=== PATIENT | female | born 1945 | race Two or more races ===

== ENCOUNTER 2016-09-11 09:48 | Outpatient (CLI) | payer MEDICARE, MEDICAID | END 2016-09-11 09:49 | disposition home or self-care (01) | DX: R41.81 Age-related cognitive decline (principal); G31.84 Mild cognitive impairment of uncertain or unknown etiology; M81.0 Age-related osteoporosis without current pathological fracture ==

== ENCOUNTER 2016-09-16 09:45 | Outpatient (CLI) | payer MEDICARE, MEDICAID | END 2016-09-16 09:46 | disposition home or self-care (01) | DX: R82.99 Other abnormal findings in urine (principal) ==

== ENCOUNTER 2016-12-23 08:00 | Outpatient (CLI) | payer MEDICARE, MEDICAID ==
[2016-12-24 13:18] LABS: BILIRUBIN,URINE NEGATIVE (NEGATIVE)
[2016-12-24 13:29] LABS: UA CHARGE (STRIP ONLY) YES; UR CULTURE IF IND NOT INDICATED
== END 2016-12-23 08:01 | disposition home or self-care (01) ==
LOC: LAB.R 08:00
PROVIDERS: ATTEND Physician Assistant Medical
DX: R35.0 Frequency of micturition (principal)
CPT/HCPCS: 81001; 81003; 87086

== ENCOUNTER 2017-06-27 10:30 | Outpatient (CLI) | payer MEDICARE, MEDICAID ==
[2017-06-27 15:21] LABS: BILIRUBIN,URINE NEGATIVE (NEGATIVE); PH,URINE 6.5 PH (5.0-7.5)
[2017-06-27 15:23] LABS: ALBUMIN/GLOBULIN RATIO 1.1 (1.0-2.2); BILIRUBIN,TOTAL 0.7 mg/dL (0.2-1.0); CALCIUM 9.5 mg/dL (8.5-10.3); CREATININE 0.9 mg/dL (0.4-1.0); POTASSIUM 4.1 mmol/L (3.5-5.0); TOTAL PROTEIN 7.7 g/dL (6.7-8.2)
[2017-06-27 15:41] LABS: BASOPHILS % (AUTO) 0.7 %; EOSINOPHILS # (AUTO) 0.1 10^3/uL (0.0-0.7); EOSINOPHILS % (AUTO) 2.8 %; HCT - HEMATOCRIT 40.2 % (37.0-47.0); HGB - HEMOGLOBIN 13.5 g/dL (12.0-16.0); LYMPHOCYTES # (AUTO) 1.4 10^3/uL (1.5-3.5); LYMPHOCYTES % (AUTO) 38.2 %; MEAN CORPUSCULAR HGB CONC 33.6 g/dL (32.0-36.0); MEAN CORPUSCULAR VOLUME 83.4 fL (81.0-99.0); MEAN PLATELET VOLUME 7.8 fL (7.9-10.8); MONOCYTES # (AUTO) 0.2 10^3/uL (0.0-1.0); MONOCYTES % (AUTO) 5.5 %; NEUTROPHILS # (AUTO) 1.9 10^3/uL (1.5-6.6); NEUTROPHILS % (AUTO) 52.8 %; RED BLOOD COUNT 4.83 10^6/uL (4.20-5.40); RED CELL DISTRIBUTION WIDTH 14.2 % (12.0-15.0); UNCORRECTED WHITE BLOOD COUNT 3.6 x10^3/uL; WHITE BLOOD COUNT 3.6 x10^3/uL (4.8-10.8)
[2017-06-27 16:00] LABS: UA CHARGE (STRIP ONLY) YES; UR CULTURE IF IND INDICATED
== END 2017-06-27 10:31 | disposition home or self-care (01) ==
LOC: LAB.R 10:30
PROVIDERS: ATTEND Physician Assistant Medical
DX: R55 Syncope and collapse (principal); R35.0 Frequency of micturition; R41.89 Other symptoms and signs involving cognitive functions and awareness
CPT/HCPCS: 80053; 81001; 81003; 85025; 87086

== ENCOUNTER 2018-01-29 08:00 | Outpatient (CLI) | payer MEDICARE, MEDICAID ==
[2018-01-29 17:59] LABS: BASOPHILS % (AUTO) 0.6 %; EOSINOPHILS # (AUTO) 0.1 10^3/uL (0.0-0.7); EOSINOPHILS % (AUTO) 2.7 %; HGB - HEMOGLOBIN 13.1 g/dL (12.0-16.0); LYMPHOCYTES # (AUTO) 1.4 10^3/uL (1.5-3.5); LYMPHOCYTES % (AUTO) 38.9 %; MEAN CORPUSCULAR HGB CONC 33.3 g/dL (32.0-36.0); MEAN CORPUSCULAR VOLUME 84.2 fL (81.0-99.0); MEAN PLATELET VOLUME 7.6 fL (7.9-10.8); MONOCYTES # (AUTO) 0.2 10^3/uL (0.0-1.0); MONOCYTES % (AUTO) 6.3 %; NEUTROPHILS # (AUTO) 1.9 10^3/uL (1.5-6.6); NEUTROPHILS % (AUTO) 51.5 %; PLT - PLATELET COUNT 220 10^3/uL (130-450); RED BLOOD COUNT 4.66 10^6/uL (4.20-5.40); RED CELL DISTRIBUTION WIDTH 15.3 % (12.0-15.0); WHITE BLOOD COUNT 3.7 x10^3/uL (4.8-10.8)
[2018-01-29 18:14] LABS: ALBUMIN 4.1 g/dL (3.2-5.5); ALBUMIN/GLOBULIN RATIO 1.1 (1.0-2.2); ALKALINE PHOSPHATASE 65 IU/L (42-121); ALT ALANINE AMINOTRANSFERASE 18 IU/L (10-60); AST ASPARTATE AMINOTRANSFERASE 23 IU/L (10-42); BILIRUBIN,TOTAL 0.7 mg/dL (0.2-1.0); BUN - BLOOD UREA NITROGEN 12 mg/dL (6-20); CALCIUM 9.2 mg/dL (8.5-10.3); CARBON DIOXIDE - CO2 26 mmol/L (21-32); CHLORIDE 103 mmol/L (101-111); CHOL/HDL RATIO 3.1 (<4.4); CHOLESTEROL 154 mg/dL; CREATININE 0.8 mg/dL (0.4-1.0); GFR - MDRD 71 (>89); GLUCOSE 79 mg/dL (70-100); HDL CHOLESTEROL 50 mg/dL; LDL CHOLESTEROL,CALCULATED 88 mg/dL; LDL/HDL RATIO 1.8 (<4.4); SODIUM 135 mmol/L (135-145); TOTAL PROTEIN 7.8 g/dL (6.7-8.2); VLDL CHOLESTEROL 16 mg/dL
[2018-01-29 18:24] LABS: THYROID STIMULATING HORMONE 1.82 uIU/mL (0.34-5.60)
== END 2018-01-29 08:01 | disposition home or self-care (01) ==
LOC: LAB.R 08:00
PROVIDERS: ATTEND Physician Assistant Medical
DX: R35.0 Frequency of micturition (principal); R41.89 Other symptoms and signs involving cognitive functions and awareness; M81.0 Age-related osteoporosis without current pathological fracture; Z79.899 Other long term (current) drug therapy
CPT/HCPCS: 80053; 80061; 82306; 82607; 83721; 84443; 85025; 87086; 87181

== ENCOUNTER 2018-03-26 13:20 | Outpatient (CLI) | payer MEDICARE, MEDICAID ==
[2018-03-26] MEDS ORDERED: GADOBUTROL 7.5 MMOL/7.5 ML VIAL ONE (14:07)
[2018-03-26] MEDS ORDERED: GADOBUTROL 7.5 MMOL/7.5 ML VIAL IVP ONE (14:38)
--- NOTE | 2018-03-27 17:03 | MRI Report ---
Procedure Date: 03/26/2018 Accession Number: [id number] / [id number] Procedure: MRI - Brain W/WO CPT Code: FULL RESULT: EXAM: MRI BRAIN WITHOUT AND WITH CONTRAST EXAM DATE: 03/26/2018 02:56 PM. CLINICAL HISTORY: Cognitive changes. COMPARISON: MRI of the brain without contrast 02/22/2015. TECHNIQUE: Multiplanar, multisequence T1-weighted and fluid-sensitive MR sequences of the brain were performed. Sequences optimized for routine evaluation. Other: None. IV Contrast: 7.5 mL Gadavist. FINDINGS: The diffusion-weighted images are normal. There is no evidence of acute or subacute cerebral infarction. The T2* sequence is normal. There is no evidence of subacute or chronic hemorrhage. The FLAIR images demonstrate multiple punctate and confluent areas of T2 hyperintensity within the subcortical, deep, and periventricular white matter. This is consistent with a moderate degree of chronic small vessel ischemia. There is enlargement of the lateral ventricles and the third ventricle but not out of proportion to the enlargement of the cerebral sulci. This is consistent with a mild degree of generalized volume loss. There is a mild degree of mucosal thickening in the bilateral maxillary sinuses. The optic nerves demonstrate symmetric signal intensity and size. The bilateral parotid spaces exhibit normal signal intensity. The degree of hippocampal volume loss does not appear to be out of proportion to that of the generalized supratentorial volume loss. The hippocampi exhibit symmetric signal intensities. The cerebral vascular flow voids are patent. The postcontrast T1-weighted images are normal. IMPRESSION: 1. There is no evidence of acute or subacute cerebral infarction. 2. There is moderate degree of chronic small vessel ischemia and mild degree of generalized volume loss. 3. There is no evidence of brain mass. 4. The degree of hippocampal volume loss does not appear to be out of proportion to that of the generalized supratentorial volume loss.
== END 2018-03-26 13:21 | disposition home or self-care (01) ==
LOC: DI 13:20
PROVIDERS: ATTEND Physician Assistant Medical
DX: R41.89 Other symptoms and signs involving cognitive functions and awareness (principal); I67.82 Cerebral ischemia
CPT/HCPCS: 70553; A9585

== ENCOUNTER 2020-02-02 08:00 | Outpatient (CLI) | payer MEDICARE, MEDICAID ==
[2020-02-02 18:24] LABS: BILIRUBIN,URINE NEGATIVE (NEGATIVE); GLUCOSE, URINE (UA) NEGATIVE (NEGATIVE); KETONES,URINE (UA) NEGATIVE (NEGATIVE); LEUKOCYTE ESTERASE, URINE SMALL (NEGATIVE); NITRITE,URINE POSITIVE (NEGATIVE); OCCULT BLOOD,URINE NEGATIVE (NEGATIVE); PROTEIN,URINE NEGATIVE (NEGATIVE); UROBILINOGEN,URINE 1 (NORMAL) E.U./dL (NORMAL)
[2020-02-02 18:28] LABS: CLARITY,URINE CLEAR (CLEAR)
[2020-02-02 19:14] LABS: BACTERIA,URINE Many /HPF (None Seen); RBC,URINE 0-5 /HPF (0-5); SQUAMOUS EPITHELIAL CELL,UR MANY Squamous (<= Few)
== END 2020-02-02 23:59 | disposition home or self-care (01) ==
LOC: LAB.R 08:00
PROVIDERS: ATTEND Nurse Practitioner Family
DX: R35.0 Frequency of micturition (principal)
CPT/HCPCS: 81001; 81003; 87086

== ENCOUNTER 2020-03-30 08:00 | Outpatient (CLI) | payer MEDICARE, MEDICAID | END 2020-03-30 23:59 | disposition home or self-care (01) | LOC: LAB.R 08:00 | PROVIDERS: ATTEND Nurse Practitioner Family | DX: J06.9 Acute upper respiratory infection, unspecified (principal); Z20.828 Contact with and (suspected) exposure to other viral communicable diseases ==

== ENCOUNTER 2020-10-30 09:46 | Outpatient (CLI) | payer MEDICARE, MEDICAID ==
[2020-10-30 12:16] LABS: BASOPHILS % (AUTO) 0.6 %; EOSINOPHILS # (AUTO) 0.2 10^3/uL (0.0-0.7); EOSINOPHILS % (AUTO) 4.8 %; HCT - HEMATOCRIT 43.7 % (37.0-47.0); HGB - HEMOGLOBIN 13.7 g/dL (12.0-16.0); LYMPHOCYTES % (AUTO) 31.7 %; MEAN CORPUSCULAR HEMOGLOBIN 27.6 pg (27.0-31.0); MEAN CORPUSCULAR HGB CONC 31.4 g/dL (32.0-36.0); MEAN CORPUSCULAR VOLUME 88.1 fL (81.0-99.0); MONOCYTES # (AUTO) 0.2 10^3/uL (0.0-1.0); MONOCYTES % (AUTO) 5.4 %; NEUTROPHILS # (AUTO) 1.8 10^3/uL (1.5-6.6); NEUTROPHILS % (AUTO) 57.5 %; PLT - PLATELET COUNT 200 10^3/uL (130-450); RED BLOOD COUNT 4.96 10^6/uL (4.20-5.40); RED CELL DISTRIBUTION WIDTH 14.2 % (12.0-15.0); WHITE BLOOD COUNT 3.2 x10^3/uL (4.8-10.8)
[2020-10-30 12:43] LABS: ALBUMIN 4.3 g/dL (3.2-5.5); ALBUMIN/GLOBULIN RATIO 1.1 (1.0-2.2); ALKALINE PHOSPHATASE 60 IU/L (42-121); ALT ALANINE AMINOTRANSFERASE 19 IU/L (10-60); AST ASPARTATE AMINOTRANSFERASE 23 IU/L (10-42); BILIRUBIN,TOTAL 0.9 mg/dL (0.2-1.0); BUN - BLOOD UREA NITROGEN 12 mg/dL (6-20); CALCIUM 9.7 mg/dL (8.5-10.3); CARBON DIOXIDE - CO2 28 mmol/L (21-32); CHLORIDE 109 mmol/L (101-111); CHOL/HDL RATIO 3.9 (<4.4); CHOLESTEROL 180 mg/dL; CREATININE 0.9 mg/dL (0.4-1.0); GFR - MDRD 61 (>89); GLUCOSE 93 mg/dL (70-100); HDL CHOLESTEROL 46 mg/dL; LDL CHOLESTEROL,CALCULATED 117 mg/dL; LDL/HDL RATIO 2.5 (<4.4); POTASSIUM 4.3 mmol/L (3.5-5.0); SODIUM 143 mmol/L (135-145); TOTAL PROTEIN 8.2 g/dL (6.7-8.2); TRIGLYCERIDES 84 mg/dL; VLDL CHOLESTEROL 17 mg/dL
[2020-10-30 12:44] LABS: CRP - C-REACTIVE PROTEIN < 1.0 mg/dL (0-1.0)
[2020-10-30 12:45] LABS: THYROID STIMULATING HORMONE 1.87 uIU/mL (0.34-5.60)
[2020-10-30 13:34] LABS: FOLATE > 49.60 ng/mL (5.90 - >24.8)
== END 2020-10-30 09:47 | disposition home or self-care (01) ==
LOC: LAB.N 09:46
PROVIDERS: ATTEND Family Medicine
DX: R53.83 Other fatigue (principal); R60.0 Localized edema; R07.89 Other chest pain; R32 Unspecified urinary incontinence
CPT/HCPCS: 36415; 80053; 80061; 81001; 81003; 82607; 82746; 83721; 84443; 85025; 85651; 86140; 87086

== ENCOUNTER 2020-11-06 08:00 | Outpatient (CLI) | payer MEDICARE, MEDICAID ==
[2020-11-06 18:53] LABS: BILIRUBIN,URINE NEGATIVE (NEGATIVE); GLUCOSE, URINE (UA) NEGATIVE (NEGATIVE); KETONES,URINE (UA) NEGATIVE (NEGATIVE); LEUKOCYTE ESTERASE, URINE SMALL (NEGATIVE); NITRITE,URINE POSITIVE (NEGATIVE); OCCULT BLOOD,URINE NEGATIVE (NEGATIVE); PH,URINE 6.5 PH (5.0-7.5); PROTEIN,URINE NEGATIVE (NEGATIVE); UROBILINOGEN,URINE 0.2 (NORMAL) E.U./dL (NORMAL)
[2020-11-06 19:00] LABS: BACTERIA,URINE Many /HPF (None Seen); CLARITY,URINE SL. CLOUDY (CLEAR); RBC,URINE 0-5 /HPF (0-5); SQUAMOUS EPITHELIAL CELL,UR FEW Squamous (<= Few); WBC,URINE 0-3 /HPF (0-5)
== END 2020-11-06 23:59 | disposition home or self-care (01) ==
LOC: LAB.WCP 08:00
PROVIDERS: ATTEND Family Medicine
DX: R32 Unspecified urinary incontinence (principal)
CPT/HCPCS: 81001; 87086; 87181

== ENCOUNTER 2020-11-07 09:36 | Outpatient (CLI) | payer MEDICARE, MEDICAID ==
--- NOTE | 2020-11-07 10:37 | XRAY Report ---
PROCEDURE: Chest 2 View X-Ray INDICATIONS: FATIGUE TECHNIQUE: 2 view(s) of the chest. COMPARISON: 03/14/2014. FINDINGS: Surgical changes and devices: None. Lungs and pleura: No pleural effusions or pneumothorax. Lungs are clear. Mediastinum: Mediastinal contours are normal. Heart size is normal. Bones and chest wall: No suspicious bony abnormalities. Soft tissues appear unremarkable. IMPRESSION: Chest without acute cardiopulmonary abnormalities. No focal airspace disease. Reviewed by: Tarun Baldwin MD on 11/07/2020 10:36 AM PDT Approved by: Tarun Baldwin MD on 11/07/2020 10:36 AM PDT Station ID: [id number]
== END 2020-11-07 23:59 | disposition home or self-care (01) ==
LOC: DI.WCP 09:36
PROVIDERS: ATTEND Family Medicine
DX: R53.83 Other fatigue (principal); R60.0 Localized edema

== ENCOUNTER 2021-04-24 00:26 | Emergency (ER) | payer MEDICARE, MEDICAID ==
--- NOTE | 2021-04-24 02:20 | ED Physician Documentation ---
PD HPI SKIN - Stated complaint Stated Complaint: BREST SWOLLEN/PX - Chief complaint Chief Complaint: General - History obtained from History obtained from: Patient - History of Present Illness Timing - onset: How many weeks ago (2) Timing - details: Gradual onset Pain level now: 3 Location: Chest Quality / character: Itchy, Painful, Burning, Discolored Associated symptoms: No: Fever Similar symptoms before: Has not had sx before - Additional information Additional information: c/o 2 weeks of rash under bilateral breasts, became painful and associated with malodor x 2-3 days Review of Systems Constitutional: denies: Fever Skin: reports: Rash PD PAST MEDICAL HISTORY - Past Medical History Past Medical History: Yes Cardiovascular: Other Respiratory: Tuberculosis Neuro: None Endocrine/Autoimmune: None GI: None [employer]: None : Chronic bladder infection, Frequency HEENT: None Psych: None Musculoskeletal: Osteoarthritis, Osteoporosis Derm: Other - Past Surgical History Past Surgical History: Yes General: Other /[employer]: Dilation and currettage - Present Medications Home Medications: Ambulatory Orders Medication Instructions Recorded Confirmed Doxycycline Hyclate 100 mg PO BID #19 04/24/21 Fluconazole [Diflucan] 1 tablet PO ONCE 1 Days #1 tablet 04/24/21 Ketoconazole 2% Cream [Nizoral 2% 1 applic TOP DAILY #15 gm 04/24/21 Cream] - Allergies Allergies/Adverse Reactions: Allergies Allergy/AdvReac Type Severity Reaction Status Date / Time No Known Drug Allergies Allergy Verified 04/24/21 00:40 - Social History Does the pt smoke?: No Smoking Status: Never smoker Does the pt drink ETOH?: Yes Does the pt have substance abuse?: No - Immunizations Immunizations are current?: Yes - POLST Patient has POLST: No PD ED PE NORMAL - Vitals Vital signs reviewed: Yes - General General: Alert and oriented X 3, No acute distress PD ED PE EXPANDED - Cardiac Cardiac: Chest wall TTP - Derm Derm: Rash (erythematous exanthem, raised vesicles with confluence and satellite lesions, intertriginous area of bilateral breasts and adjacent chest wall. There is an associated creamy, malodorous discharge but no evidence of drainage from specific site nor any palpable abscess/fluctuance ) Results - Vitals Vitals: Oxygen O2 Source Room air PD MEDICAL DECISION MAKING - ED course Complexity details: considered differential, d/w patient ED course: HPI and exam are consistent with intertrigo/cutaneous candidiasis (on underside of bilateral breasts and the area of chest wall underneath the breasts), with a malodorous discharge that is concerning for superimposed bacterial component (such as cellulitis). Will treat with both diflucan and antibiotic, d/w patient expected course (improvement within 2-3 days), and return precautions Departure - Departure Disposition: 01 Home, Self Care Clinical Impression: Intertrigo, Cellulitis of chest wall Condition: Good Instructions: ED Candidiasis Cutaneous, ED Infec Skin Cellulitis Prescriptions: Fluconazole [Diflucan] 1 tablet PO ONCE 1 Days #1 tablet Doxycycline Hyclate 100 mg PO BID #19 Ketoconazole 2% Cream [Nizoral 2% Cream] 1 applic TOP DAILY #15 gm Comments: Follow up with your primary care provider in 3-4 days for recheck of the infection Discharge Date/Time: 04/24/21 02:39
[2021-04-24] MEDS ORDERED: FLUCONAZOLE 100 MG TABLET PO STA (02:29)
[2021-04-24] MEDS ORDERED: DOXYCYCLINE 100 MG TABLET PO STA (02:29)
[2021-04-24 02:40] VITALS: BP 132/75
== END 2021-04-24 02:39 | disposition home or self-care (01) ==
LOC: ED 00:26
DX: L30.4 Erythema intertrigo (principal); L03.313 Cellulitis of chest wall
CPT/HCPCS: 99283; A9270

== ENCOUNTER 2021-07-20 09:53 | Outpatient (CLI) | payer MEDICARE, MEDICAID ==
[2021-07-20 12:19] LABS: BILIRUBIN,URINE NEGATIVE (NEGATIVE); GLUCOSE, URINE (UA) NEGATIVE (NEGATIVE); KETONES,URINE (UA) NEGATIVE (NEGATIVE); LEUKOCYTE ESTERASE, URINE NEGATIVE (NEGATIVE); NITRITE,URINE NEGATIVE (NEGATIVE); OCCULT BLOOD,URINE NEGATIVE (NEGATIVE); PH,URINE 8.5 PH (5.0-7.5); PROTEIN,URINE NEGATIVE (NEGATIVE); UROBILINOGEN,URINE 0.2 (NORMAL) E.U./dL (NORMAL)
[2021-07-20 13:10] LABS: BACTERIA,URINE None Seen /HPF (None Seen); CLARITY,URINE HAZY (CLEAR); EPITHELIAL CELLS,UR None Seen /HPF (<= Few); RBC,URINE None Seen /HPF (0-5); SQUAMOUS EPITHELIAL CELL,UR RARE Squamous (<= Few); WBC CLUMPS,URINE NONE SEEN; WBC,URINE 0-3 /HPF (0-5)
[2021-07-20 13:11] LABS: CRYSTALS,URINE 6-10 Triple Phos /LPF
== END 2021-07-20 23:59 | disposition home or self-care (01) ==
LOC: LAB.WCP 09:53
PROVIDERS: ATTEND Family Medicine
DX: R35.0 Frequency of micturition (principal)
CPT/HCPCS: 81001; 87086

== ENCOUNTER 2021-09-04 08:00 | Outpatient (CLI) | payer MEDICARE, MEDICAID ==
[2021-09-04 18:42] LABS: BILIRUBIN,URINE NEGATIVE (NEGATIVE); GLUCOSE, URINE (UA) NEGATIVE (NEGATIVE); KETONES,URINE (UA) NEGATIVE (NEGATIVE); LEUKOCYTE ESTERASE, URINE NEGATIVE (NEGATIVE); NITRITE,URINE POSITIVE (NEGATIVE); OCCULT BLOOD,URINE NEGATIVE (NEGATIVE); PH,URINE >=9.0 PH (5.0-7.5); PROTEIN,URINE NEGATIVE (NEGATIVE); UROBILINOGEN,URINE 1 (NORMAL) E.U./dL (NORMAL)
[2021-09-04 18:44] LABS: CLARITY,URINE HAZY (CLEAR)
[2021-09-04 20:04] LABS: AMORPHOUS SEDIMENT,UR Few /LPF; BACTERIA,URINE Many /HPF (None Seen); CRYSTALS,URINE 11-25 Triple Phos /LPF; RBC,URINE None Seen /HPF (0-5); SQUAMOUS EPITHELIAL CELL,UR RARE Squamous (<= Few); WBC,URINE 0-3 /HPF (0-5)
== END 2021-09-04 23:59 | disposition home or self-care (01) ==
LOC: LAB.WCP 08:00
PROVIDERS: ATTEND Family Medicine
DX: R32 Unspecified urinary incontinence (principal)
CPT/HCPCS: 81001; 87086; 87181

== ENCOUNTER 2022-06-12 12:58 | Outpatient (CLI) | payer MEDICARE, MEDICAID ==
--- NOTE | 2022-06-13 10:28 | Mammography Report ---
BILATERAL DIGITAL SCREENING MAMMOGRAM 3D/2D: 06/12/2022 CLINICAL: Routine screening. Comparison is made to exam dated: 09/07/2013 mammogram - [facility]. There are scattered areas of fibroglandular density in both breasts (category b / 25%-50% glandular t issue). No significant masses, calcifications, or other findings are seen in either breast. There has been no significant interval change. IMPRESSION: NEGATIVE There is no mammographic evidence of malignancy. A 1 year screening mammogram is recommended. Based on the Tyrer Cuzick model (a risk assessment model) the patients lifetime risk is 3.7% and her 10 year risk is 0.0%. According to the ACR, ACS, and NCCN guidelines, an annual breast MRI exam trish g with mammogram is recommended if the patients lifetime risk is 20% or greater. This exam was interpreted at Station ID: [id number]. NOTE: For mammograms, a report in lay terms will be sent to the patient. Approximately 15% of breast malignancies will not be visualized mammographically. In the management of a palpable breast mass, a negative mammogram must not discourage biopsy of a clinically suspicious lesion. Electronically Signed By: Arabella [email or web address]:06/12/2022 17:04:48 ACR BI-RADS Category 1: Negative 3341F PARENCHYMAL PATTERN: (A) - The breast(s) demonstrate(s) scattered fibroglandular densities. BI-RADS CATEGORY: (1) - 1 RECOMMENDATION: (ANNUAL) - Recommend routine annual screening mammography. [id number] 1 year screening LATERALITY: (B)
== END 2022-06-12 12:59 | disposition home or self-care (01) ==
LOC: DI 12:58
PROVIDERS: ATTEND Physician Assistant
DX: Z12.31 Encounter for screening mammogram for malignant neoplasm of breast (principal)

== ENCOUNTER 2022-06-12 13:00 | Outpatient (CLI) | payer MEDICARE, MEDICAID ==
--- NOTE | 2022-06-13 13:58 | DEXA Report ---
PROCEDURE: Dexa Spine and/or Hip INDICATIONS: POST MENOPAUSAL TECHNIQUE: Dual energy x-ray absorptiometry (DXA) was performed on a [employer] System. Regions measur ed are the AP Spine, femoral neck, and if needed forearm. COMPARISON: None. FINDINGS: Lumbar Spine (L1-L4): Bone Mineral Density 0.892 g/cm/cm,T score -2.4. Left Hip: Bone Mineral Density 0.692 g/cm/cm,T score -2.5 Left Femoral Neck: Bone Mineral Density 0.661 g/cm/cm, T score -2.7. (T score greater or equal to -1.0: NORMAL) (T score from -1.1 to -2.4: OSTEOPENIA) (T score less than or equal to -2.5 to: OSTEOPOROSIS) Impression: Osteoporosis Patients with diagnosis of osteoporosis or osteopenia should have regular bone mineral density assess ment. For those eligible for Medicare, routine testing is allowed once every 2 years. Testing frequ ency can be increased for patients who have rapidly progressing disease or for those who are receivin g medical therapy to restore bone mass. Reviewed by: Narendra Quintanilla MD on 06/13/2022 1:56 PM PDT Approved by: Narendra Quintanilla MD on 06/13/2022 1:56 PM PDT Station ID: [id number]
== END 2022-06-12 13:01 | disposition home or self-care (01) ==
LOC: DI 13:00
PROVIDERS: ATTEND Physician Assistant
DX: M81.0 Age-related osteoporosis without current pathological fracture (principal)

== ENCOUNTER 2022-10-24 08:00 | Outpatient (CLI) | payer MEDICARE, MEDICAID ==
[2022-10-24 18:14] LABS: BILIRUBIN,URINE NEGATIVE (NEGATIVE); GLUCOSE, URINE (UA) NEGATIVE (NEGATIVE); KETONES,URINE (UA) NEGATIVE (NEGATIVE); LEUKOCYTE ESTERASE, URINE SMALL (NEGATIVE); NITRITE,URINE POSITIVE (NEGATIVE); OCCULT BLOOD,URINE NEGATIVE (NEGATIVE); PH,URINE 6.5 PH (5.0-7.5); PROTEIN,URINE NEGATIVE (NEGATIVE); UROBILINOGEN,URINE 0.2 (NORMAL) E.U./dL (NORMAL)
[2022-10-24 18:17] LABS: CLARITY,URINE CLOUDY (CLEAR)
[2022-10-24 18:29] LABS: BACTERIA,URINE Many /HPF (None Seen); RBC,URINE 0-5 /HPF (0-5); SQUAMOUS EPITHELIAL CELL,UR FEW Squamous (<= Few)
== END 2022-10-24 23:59 | disposition home or self-care (01) ==
LOC: LAB.WCP 08:00
PROVIDERS: ATTEND Physician Assistant
DX: R35.0 Frequency of micturition (principal)
CPT/HCPCS: 81001; 87086

== ENCOUNTER 2022-11-06 09:08 | Outpatient (CLI) | payer MEDICARE, MEDICAID ==
[2022-11-06 11:52] LABS: BASOPHILS % (AUTO) 0.6 %; EOSINOPHILS # (AUTO) 0.2 10^3/uL (0.0-0.7); EOSINOPHILS % (AUTO) 6.9 %; HCT - HEMATOCRIT 43.9 % (37.0-47.0); HGB - HEMOGLOBIN 13.6 g/dL (12.0-16.0); LYMPHOCYTES # (AUTO) 1.3 10^3/uL (1.5-3.5); LYMPHOCYTES % (AUTO) 39.2 %; MEAN CORPUSCULAR HEMOGLOBIN 27.4 pg (27.0-31.0); MEAN CORPUSCULAR VOLUME 88.3 fL (81.0-99.0); MEAN PLATELET VOLUME 9.9 fL (7.9-10.8); MONOCYTES # (AUTO) 0.2 10^3/uL (0.0-1.0); MONOCYTES % (AUTO) 7.2 %; NEUTROPHILS # (AUTO) 1.5 10^3/uL (1.5-6.6); NEUTROPHILS % (AUTO) 45.8 %; PLT - PLATELET COUNT 205 10^3/uL (130-450); RED BLOOD COUNT 4.97 10^6/uL (4.20-5.40); RED CELL DISTRIBUTION WIDTH 13.7 % (12.0-15.0); WHITE BLOOD COUNT 3.3 x10^3/uL (4.8-10.8)
[2022-11-06 12:21] LABS: THYROID STIMULATING HORMONE 1.95 uIU/mL (0.34-5.60)
[2022-11-06 12:25] LABS: ALKALINE PHOSPHATASE 63 IU/L (42-121); ALT ALANINE AMINOTRANSFERASE 15 IU/L (10-60); AST ASPARTATE AMINOTRANSFERASE 19 IU/L (10-42); BILIRUBIN,TOTAL 0.8 mg/dL (0.2-1.0); BUN - BLOOD UREA NITROGEN 12 mg/dL (6-20); CALCIUM 9.6 mg/dL (8.5-10.3); CARBON DIOXIDE - CO2 29 mmol/L (21-32); CHLORIDE 110 mmol/L (101-111); CHOL/HDL RATIO 3.8 (<4.4); CHOLESTEROL 177 mg/dL; CREATININE 0.9 mg/dL (0.4-1.0); GFR - MDRD 61 (>89); GLUCOSE 95 mg/dL (70-100); HDL CHOLESTEROL 46 mg/dL; LDL CHOLESTEROL,CALCULATED 116 mg/dL; LDL/HDL RATIO 2.5 (<4.4); POTASSIUM 4.2 mmol/L (3.5-5.0); SODIUM 143 mmol/L (135-145); TRIGLYCERIDES 77 mg/dL; VLDL CHOLESTEROL 15 mg/dL
[2022-11-06 12:30] LABS: FOLATE 12.6 ng/mL (5.90 - >24.8)
[2022-11-06 14:41] LABS: ESTIMATED AVERAGE GLUCOSE 91 mg/dL (70-100); HEMOGLOBIN A1c% 4.8 % (4.27-6.07)
== END 2022-11-06 09:09 | disposition home or self-care (01) ==
LOC: LAB.N 09:08
PROVIDERS: ATTEND Physician Assistant
DX: E78.5 Hyperlipidemia, unspecified (principal); G62.9 Polyneuropathy, unspecified
CPT/HCPCS: 36415; 80053; 80061; 81001; 81003; 82607; 82746; 83036; 83721; 84443; 85025; 87086

== ENCOUNTER 2022-11-07 09:35 | Outpatient (CLI) | payer MEDICARE, MEDICAID ==
[2022-11-07 12:09] LABS: BILIRUBIN,URINE NEGATIVE (NEGATIVE); GLUCOSE, URINE (UA) NEGATIVE (NEGATIVE); KETONES,URINE (UA) NEGATIVE (NEGATIVE); LEUKOCYTE ESTERASE, URINE NEGATIVE (NEGATIVE); NITRITE,URINE NEGATIVE (NEGATIVE); OCCULT BLOOD,URINE NEGATIVE (NEGATIVE); PROTEIN,URINE NEGATIVE (NEGATIVE); UROBILINOGEN,URINE 1 (NORMAL) E.U./dL (NORMAL)
[2022-11-07 12:24] LABS: BACTERIA,URINE Rare /HPF (None Seen); CLARITY,URINE CLEAR (CLEAR); RBC,URINE None Seen /HPF (0-5); SQUAMOUS EPITHELIAL CELL,UR RARE Squamous (<= Few); WBC,URINE 0-3 /HPF (0-5)
== END 2022-11-07 23:59 | disposition home or self-care (01) ==
LOC: LAB.N 09:35
PROVIDERS: ATTEND Physician Assistant
DX: R35.0 Frequency of micturition (principal)
CPT/HCPCS: 81001; 87086

== ENCOUNTER 2023-11-28 08:00 | Outpatient (CLI) | payer MEDICARE, MEDICAID ==
[2023-11-28 17:56] LABS: BILIRUBIN,URINE NEGATIVE (NEGATIVE); GLUCOSE, URINE (UA) NEGATIVE (NEGATIVE); KETONES,URINE (UA) NEGATIVE (NEGATIVE); LEUKOCYTE ESTERASE, URINE LARGE (NEGATIVE); NITRITE,URINE POSITIVE (NEGATIVE); OCCULT BLOOD,URINE SMALL (NEGATIVE); PH,URINE 6.5 PH (5.0-7.5); PROTEIN,URINE 30 mg/dL (NEGATIVE); UROBILINOGEN,URINE 0.2 (NORMAL) E.U./dL (NORMAL)
[2023-11-28 17:58] LABS: BACTERIA,URINE Many /HPF (None Seen); CLARITY,URINE CLOUDY (CLEAR); SQUAMOUS EPITHELIAL CELL,UR FEW Squamous (<= Few); WBC,URINE >25 /HPF (0-5)
== END 2023-11-28 23:59 | disposition home or self-care (01) ==
LOC: LAB.WCP 08:00
PROVIDERS: ATTEND Physician Assistant
DX: R35.0 Frequency of micturition (principal); R30.0 Dysuria
CPT/HCPCS: 81001; 87086; 87181